=== PATIENT | female | born 1945 | race Caucasian/White ===

== ENCOUNTER 2017-02-06 09:55 | Emergency (ER) | payer OTHER ==
[2017-02-06 10:16] VITALS: BMI 20.4
[2017-02-06] MEDS ORDERED: DIPHTH,PERTUSS(ACELL),TET 0.5 ML DISP.SYRIN IM ONE (10:19)
--- NOTE | 2017-02-06 10:23 | PDOC ---
History of Present Illness <Eleno Jaquez - Last Filed: 02/06/17 10:47> - History of Present Illness Initial Comments: 02/06/17 10:23 "The patient is a 71 year old female with a significant PMH of HTN, chronic rhinitis, chronic neck pain, torticollis, dystonia, and depression who presents to the emergency department with a head laceration and lower back pain s/p fall earlier today. Pt reports that she tripped while getting out of bed to use the restroom, falling backwards onto her behind and hitting her head against the floor. Denies LOC. Was able to get up on her own and ambulate without problems. Now complains of pain in her behind where she hit the floor. Denies neck pain, denies numbness/tingling/weakness in any extremity. Denies MCNALLY/N/V. Denies pain in any extremity. The patient denies chest pain, shortness of breath, and dizziness. Denies fever, chills, nausea, vomit, diarrhea and constipation. Denies dysuria, frequency, urgency and hematuria. Allergies: Amoxicillin, Penicillins, Sulfonamide antibiotics Past surgical history: None reported. Social history: No reported cigarette, alcohol or drug use. " <Slick Han - Last Filed: 02/06/17 11:45> - General Chief Complaint: Injury Stated Complaint: FALL Time Seen by Provider: 02/06/17 10:01 Past History <Eleno Jaquez - Last Filed: 02/06/17 10:47> - Past Medical History Cardiac Disorders: No Diabetes: No HTN: Yes Psychiatric Problems: Yes (DEPRESSION) Seizures: No Thyroid Disease: No - Suicide/Smoking/Psychosocial Hx Smoking History: Never smoked Have you smoked in the past 12 months: No Information on smoking cessation initiated: No Hx Alcohol Use: No Drug/Substance Use Hx: No Substance Use Type: None Hx Substance Use Treatment: No <Slick Han - Last Filed: 02/06/17 11:45> - Past Medical History Allergies/Adverse Reactions: Allergies Allergy/AdvReac Type Severity Reaction Status Date / Time amoxicillin Allergy Unknown Verified 02/06/17 10:16 Penicillins Allergy Unknown Verified 02/06/17 10:16 Sulfa (Sulfonamide Allergy Unknown Verified 02/06/17 10:16 Antibiotics) egg AdvReac Severe "LOSES HER Verified 02/06/17 10:16 VOICE" Fish Containing Products AdvReac Severe "LOSES HER Verified 02/06/17 10:16 VOICE" mushroom AdvReac Intermediate UNKNOWN Verified 02/06/17 10:16 Home Medications: Ambulatory Orders Duloxetine HCl [Cymbalta] 60 mg PO BID 10/03/15 Mirtazapine 15 mg PO HS 02/06/17 Risperidone [Risperdal] 0.5 mg PO HS 02/06/17 Review of Systems - Review of Systems Comments:: 02/06/17 10:23 "GENERAL/CONSTITUTIONAL: No fever or chills. No weakness. HEAD, EYES, EARS, NOSE AND THROAT: (+) pain to back of head. No change in vision. No ear pain or discharge. No sore throat. CARDIOVASCULAR: No chest pain or shortness of breath. RESPIRATORY: No cough, wheezing, or hemoptysis. GASTROINTESTINAL: No nausea, vomiting, diarrhea or constipation. GENITOURINARY: No dysuria, frequency, or change in urination. MUSCULOSKELETAL: (+) Lower back pain. SKIN: No rash NEUROLOGIC: No headache, vertigo, loss of consciousness, or change in strength/ sensation. ENDOCRINE: No increased thirst. No abnormal weight change. HEMATOLOGIC/LYMPHATIC: No anemia, easy bleeding, or history of blood clots. ALLERGIC/IMMUNOLOGIC: No hives or skin allergy. " <Slick Han - Last Filed: 02/06/17 11:45> *Physical Exam - Vital Signs Last Vital Signs Temp Pulse Resp BP Pulse Ox 99 F 79 17 132/89 100 02/06/17 10:13 02/06/17 10:13 02/06/17 10:13 02/06/17 10:13 02/06/17 10:13 <Eleno Jaquez - Last Filed: 02/06/17 10:47> - Vital Signs Last Vital Signs Temp Pulse Resp BP Pulse Ox 99 F 79 17 132/89 100 02/06/17 10:13 02/06/17 10:13 02/06/17 10:13 02/06/17 10:13 02/06/17 10:13 - Physical Exam Comments: 02/06/17 10:20 "GENERAL: Awake, alert, and fully oriented, in no acute distress HEAD: 2cm laceration to occiput EYES: PERRLA, EOMI, sclera anicteric, conjunctiva clear ENT: Auricles normal inspection, hearing grossly normal, nares patent, oropharynx clear without exudates. Moist mucosa NECK: Nontender, no stepoffs, Normal ROM, supple, no lymphadenopathy, JVD, or masses BACK: Mild tenderness near coccyx, no midline back tenderness, no stepoffs LUNGS: Breath sounds equal, clear to auscultation bilaterally. No wheezes, and no crackles HEART: Regular rate and rhythm, normal S1 and S2, no murmurs, rubs or gallops ABDOMEN: Soft, nontender, normoactive bowel sounds. No guarding, no rebound. No masses EXTREMITIES: Normal range of motion, no edema. No clubbing or cyanosis. No cords, erythema, or tenderness NEUROLOGICAL: Cranial nerves II through XII intact. 5/5 strength and sensation in all extremities, Normal speech, normal gait SKIN: Warm, Dry, normal turgor, no rashes or lesions noted. < Filed: 02/06/17 11:45> Procedures - Laceration/Wound Repair Occipital Wound Length: to 2.5 cm Wound Explored: clean Wound's Depth, Shape: superficial Irrigated w/ Saline: Yes Anesthesia: 1% Lidocaine Amount of Anesthetic (ccs): 2 Wound Repaired With: [place] Number of Sutures: 2 < Filed: 02/06/17 11:45> ED Treatment Course - RADIOLOGY Radiology Studies Ordered: Category Date Time Status CERVICAL SPINE CT W/O CONTR [CT] Stat CT Scan 02/06/17 10:[address] WITHOUT CONTRAST [CT] Stat CT Scan 02/06/17 10:11 Ordered CHEST PA & LAT [RAD] Stat Radiology 02/06/17 10:11 Ordered PELVIS [RAD] Stat Radiology 02/06/17 10:11 Ordered SPINE-LUMBAR SACRAL [RAD] Stat Radiology 02/06/17 10:11 Ordered <Slick Filed: 02/06/17 11:45> Medical Decision Making - Medical Decision Making 02/06/17 10:25 71 F with 2cm head laceration and sacral pain s/p fall. - CTH, c-spine, pelvis non-con - Tdap - Lac repair 02/06/17 11:42 CTs negative for acute fx Lac repaired with 2 ethan. Pt counseled on scar formation 02/06/17 11:43 Pt awake, alert, in no distress. Well appearing. Ambulatory in ER without problem. Accompanied by . Clinically stable for DC. <Slick Han - Last Filed: 02/06/17 11:45> *DC/Admit/Observation/Transfer - Attestations Scribe Attestion: 02/06/17 10:47 Documentation prepared by Eleno Jaquez, acting as medical office secretary for Slick Han MD. <Eleno Jaquez - Last Filed: 02/06/17 10:47> - Attestations Physician Attestion: 02/06/17 11:45 I, Dr. Slick Han MD, attest that this document has been prepared under my direction and personally reviewed by me in its entirety. I further attest, that it accurately reflects all work, treatment, procedures and medical decision -making performed by me. <Slick Han - Last Filed: 02/06/17 11:45> Diagnosis at time of Disposition: Fall - Discharge Dispostion Disposition: HOME - Patient Instructions Printed Discharge Instructions: DI for Laceration Repair -- [place] Additional Instructions: Keep your wound clean and dry for 48 hours. Afterwards, you may rinse gently with soap and water. The ethan must come out in 7-10 days. You can return to this ER or go to any urgent care to have them removed. If you experience any headaches, vomiting, pain or swelling around your ethan , or any other concerning symptoms, return to the ER immediately. Otherwise, follow up with your primary doctor in 1 week.
[2017-02-06 12:25] VITALS: BP 123/77; PULSE 72; TEMP 98.9
== END 2017-02-06 12:26 | disposition home or self-care (01) ==
LOC: JER 09:55
PROC: 0HQ0XZZ Repair Scalp Skin, External Approach (ICD-10-PCS; principal; 2017-02-06)
PROC: 3E0234Z Introduction of Serum, Toxoid and Vaccine into Muscle, Percutaneous Approach (ICD-10-PCS; 2017-02-06)
DX: S01.01XA Laceration without foreign body of scalp, initial encounter (principal); W06.XXXA Fall from bed, initial encounter; Y93.89 Activity, other specified; Y92.013 Bedroom of single-family (private) house as the place of occurrence of the external cause
CPT/HCPCS: 70450-TC; 72125-TC; 72192-TC; 99283-25

== ENCOUNTER 2018-03-31 11:40 | Emergency (ER) | payer OTHER | END 2018-03-31 16:58 | disposition home or self-care (01) | LOC: JER 11:40 ==